=== PATIENT | female | born 1955 | race Caucasian/White ===

== ENCOUNTER 2020-10-25 07:17 | Emergency (ER) | payer OTHER, SELFPAY ==
[2020-10-25] MEDS ORDERED: Morphine 4 MG/ML VIAL ONE (08:02)
[2020-10-25] MEDS ORDERED: Lidocaine 1% w/Epinephrine 1:100K 20 ML VIAL ONE (08:02)
[2020-10-25] MEDS ORDERED: Ondansetron PF 4 MG/2 ML Vial ONE (08:02)
[2020-10-25 08:15] LABS: #Basophils 0.1 thou/uL (0.0-0.2); #Eosinphils 0.2 thou/uL (0.0-0.7); #Lymphocytes 2.6 thou/uL (1.20-3.40); #Monocytes 0.8 thou/uL (0.11-0.59); #Neutrophils 8.2 thou/uL (1.40-6.50); %Basophils 0.8 % (0.0-1.0); %Eosinophils 1.7 % (0.0-10.0); %Lymphocytes 21.7 % (21.0-51.0); %Monocytes 6.7 % (0.0-10.0); %Neutrophils 69.2 % (42.0-75.0); Hemoglobin 14.1 g/dL (12.0-16.0); Mean Corpuscular HGB CONC 34.6 g/dL (32.0-36.0); Mean Corpuscular Hemoglobin 32.9 pg (27.0-31.0); Mean Corpuscular Volume 94.9 fL (78.0-98.0); Mean Platelet Volume 8.1 fL (7.4-10.4); Platelet Count 464 thou/uL (130-400); RBC Distribution Width 10.9 % (11.5-14.5); White Blood Cell (WBC) Count 11.9 thou/uL (4.8-10.8)
[2020-10-25 08:38] LABS: ALT (SGPT) 28 U/L (8-55); AST (SGOT) 24 U/L (5-34); Albumin 4.3 g/dL (3.4-4.8); Alkaline Phosphatase 99 U/L (40-110); Anion Gap 15 mmol/L (10-20); BUN (Urea Nitrogen) 6 mg/dL (9.8-20.1); Bilirubin, Total 0.4 mg/dL (0.2-1.2); Calc. Creatinine Clearance 0 mL/min (70-130); Calcium 9.8 mg/dL (7.8-10.44); Carbon Dioxide 22 mmol/L (23-31); Chloride 100 mmol/L (98-107); Globulin 3.1 g/dL (2.4-3.5); Glucose 117 mg/dL (80-115); Potassium 3.6 mmol/L (3.5-5.1); Protein, Total 7.4 g/dL (5.8-8.1); Sodium 133 mmol/L (136-145)
== END 2020-10-25 09:12 | disposition home or self-care (01) ==
LOC: ERS 07:17
DX: K52.1 Toxic gastroenteritis and colitis (principal); T36.8X5A Adverse effect of other systemic antibiotics, initial encounter; L02.214 Cutaneous abscess of groin; F17.210 Nicotine dependence, cigarettes, uncomplicated; Z79.899 Other long term (current) drug therapy
CPT/HCPCS: 10060; 36415; 80053; 82274; 85025; 86850; 86900; 86901; 96374; 96375; J2270; J2405

== ENCOUNTER 2020-10-28 07:56 | Emergency (ER) | payer SELFPAY ==
[2020-10-28] MEDS ORDERED: Ondansetron PF 4 MG/2 ML Vial ONE (08:26)
[2020-10-28] MEDS ORDERED: Iopamidol-370 76% 500 ML 1 ML ONE (08:46)
[2020-10-28 08:51] LABS: #Basophils 0.1 thou/uL (0.0-0.2); #Eosinphils 0.1 thou/uL (0.0-0.7); #Lymphocytes 2.5 thou/uL (1.20-3.40); #Monocytes 0.5 thou/uL (0.11-0.59); #Neutrophils 9.2 thou/uL (1.40-6.50); %Basophils 0.8 % (0.0-1.0); %Eosinophils 0.9 % (0.0-10.0); %Lymphocytes 19.8 % (21.0-51.0); %Monocytes 4.2 % (0.0-10.0); %Neutrophils 74.3 % (42.0-75.0); Hemoglobin 13.6 g/dL (12.0-16.0); Mean Corpuscular HGB CONC 34.3 g/dL (32.0-36.0); Mean Corpuscular Hemoglobin 32.6 pg (27.0-31.0); Mean Corpuscular Volume 95.2 fL (78.0-98.0); Platelet Count 454 thou/uL (130-400); RBC Distribution Width 10.9 % (11.5-14.5); Red Blood Cell (RBC) Count 4.18 mill/uL (4.20-5.40); White Blood Cell (WBC) Count 12.4 thou/uL (4.8-10.8)
[2020-10-28 09:14] LABS: ALT (SGPT) 23 U/L (8-55); AST (SGOT) 18 U/L (5-34); Albumin 4.3 g/dL (3.4-4.8); Alkaline Phosphatase 102 U/L (40-110); Anion Gap 15 mmol/L (10-20); BUN (Urea Nitrogen) 5 mg/dL (9.8-20.1); Bilirubin, Total 0.3 mg/dL (0.2-1.2); CK (CPK) 41 U/L (29-168); Calc. Creatinine Clearance 0 mL/min (70-130); Calcium 9.6 mg/dL (7.8-10.44); Carbon Dioxide 24 mmol/L (23-31); Chloride 101 mmol/L (98-107); Globulin 3.1 g/dL (2.4-3.5); Glucose 115 mg/dL (80-115); Lipase Less than 4 U/L (8-78); Protein, Total 7.4 g/dL (5.8-8.1); Sodium 136 mmol/L (136-145)
== END 2020-10-28 10:06 | disposition home or self-care (01) ==
LOC: ERS 07:56
DX: R11.2 Nausea with vomiting, unspecified (principal); R10.13 Epigastric pain; F17.210 Nicotine dependence, cigarettes, uncomplicated
CPT/HCPCS: 71045; 74177; 80053; 82550; 83690; 84484; 85025; 93005; 96374; J2405; Q9967

== ENCOUNTER 2022-04-14 08:00 | Outpatient (CLI) | payer OTHER, MEDICAID ==
[2022-04-14] MEDS ORDERED: Iopamidol 370 76% 100 ML VIAL ONE (09:11)
== END 2022-04-14 08:01 | disposition home or self-care (01) ==
LOC: CT 08:00
PROVIDERS: ATTEND Internal Medicine
DX: K62.89 Other specified diseases of anus and rectum (principal); R59.0 Localized enlarged lymph nodes
CPT/HCPCS: 71260; 74177; 82565

== ENCOUNTER 2022-05-06 09:22 | Outpatient (CLI) | payer MEDICARE, MEDICAID ==
[2022-05-06] MEDS ORDERED: Magnevist 469MG/ML 20 ML VIAL ONE (13:49)
== END 2022-05-06 09:23 | disposition home or self-care (01) ==
LOC: TBSIIMAG 09:22
PROVIDERS: ATTEND Specialist
DX: C20 Malignant neoplasm of rectum (principal)
CPT/HCPCS: 72197; A9579

== ENCOUNTER → 2022-05-09 | Outpatient (CLI) | payer MEDICARE, MEDICAID | LOC: PET 11:00 | PROVIDERS: ATTEND Specialist | DX: C20 Malignant neoplasm of rectum (principal); R91.8 Other nonspecific abnormal finding of lung field | CPT/HCPCS: 78815; A9552 ==

== ENCOUNTER 2022-06-09 09:49 | Outpatient (CLI) | payer OTHER, MEDICAID ==
[~2022-06-09 09:49] MED LIST: Magnevist 469MG/ML 20 ML VIAL ONE
== END 2022-06-09 09:50 | disposition home or self-care (01) ==
LOC: MRI 09:49
PROVIDERS: ATTEND Radiology Radiation Oncology
DX: D48.2 Neoplasm of uncertain behavior of peripheral nerves and autonomic nervous system (principal); G95.89 Other specified diseases of spinal cord
CPT/HCPCS: 72157

== ENCOUNTER 2022-06-13 11:54 | Outpatient (CLI) | payer OTHER, MEDICAID ==
[2022-06-13 12:35] LABS: #Basophils 0.1 10x3/uL (0.0-0.2); #Eosinphils 0.2 10x3/uL (0.0-0.5); #Monocytes 0.5 10x3/uL (0.0-1.1); #Neutrophils 3.6 10x3/uL (1.5-8.4); %Basophils 0.9 % (0.0-2.0); %Eosinophils 2.8 % (0.0-6.0); %Lymphocytes 19.6 % (18.0-47.0); %Monocytes 9.2 % (0.0-10.0); %Neutrophils 67.1 % (40.0-75.0); Hemoglobin 12.7 g/dL (12.0-15.5); Mean Corpuscular Hemoglobin 31.4 pg (27.0-33.0); Mean Corpuscular Volume 92.1 fl (81.6-98.3); Mean Platelet Volume 10.5 fl (7.4-10.4); Platelet Count 291 10x3/uL (150-450); RBC Distribution Width 12.3 % (11.5-14.5); Red Blood Cell (RBC) Count 4.05 10x6/uL (3.90-5.03); White Blood Cell (WBC) Count 5.4 10x3/uL (3.5-10.5)
[2022-06-13 12:44] LABS: Anion Gap 14 mmol/L (10-20); BUN (Urea Nitrogen) 8 mg/dL (9.8-20.1); Calc. Creatinine Clearance 0 mL/min (70-130); Calcium 9.5 mg/dL (7.8-10.44); Carbon Dioxide 25 mmol/L (23-31); Chloride 101 mmol/L (98-107); Estimated GFR 96; Glucose 104 mg/dL (80-115); Potassium 3.8 mmol/L (3.5-5.1); Sodium 136 mmol/L (136-145)
== END 2022-06-13 11:55 | disposition home or self-care (01) ==
LOC: LABBT 11:54
PROVIDERS: ATTEND Specialist
DX: Z01.812 Encounter for preprocedural laboratory examination (principal); C20 Malignant neoplasm of rectum
CPT/HCPCS: 80048; 85025

== ENCOUNTER 2022-06-17 05:32 | Day surgery (SDC) | payer MEDICARE, MEDICAID ==
[2022-06-16 09:27] VITALS: BMI 26.4
[2022-06-17] MEDS ORDERED: Ketorolac Tromethamine 30 MG/ML VIAL ONE (06:25)
[2022-06-17] MEDS ORDERED: Acetaminophen 500 MG TAB ONE (06:25)
[2022-06-17] MEDS ORDERED: CEFAZOLIN 2 GM VIAL ONE (06:25)
[2022-06-17] MEDS ORDERED: Sodium Chloride 0.9% 100 ML ONE (06:26)
[2022-06-17] MEDS ORDERED: Lidocaine 1% MPF 2 ML VIAL ONE (06:37)
[2022-06-17] MEDS ORDERED: Bupivacaine/Epinephrine 0.25% 30 ML VIAL ONE (06:38)
[2022-06-17] MEDS ORDERED: Lidocaine 1% (PF) 30 ML VIAL ONE (06:38)
[2022-06-17] MEDS ORDERED: fentaNYL PF 100 MCG/2 ML SYRINGE ONE ×2 (06:48)
[2022-06-17] MEDS ORDERED: Lidocaine 2% PF 5 ML VIAL ONE (07:16)
[2022-06-17] MEDS ORDERED: Dexamethasone 20 MG/5 ML VIAL ONE (07:41)
[2022-06-17] MEDS ORDERED: Lidocaine 1% PF 5 ML VIAL ONE (07:41)
[2022-06-17] MEDS ORDERED: ePHEDrine 50 MG/ML VIAL ONE (07:41)
[2022-06-17] MEDS ORDERED: Ondansetron PF 4 MG/2 ML Vial ONE (07:41)
[2022-06-17] MEDS ORDERED: PROPOFOL 200 MG/20 ML VIAL ONE (07:41)
== END 2022-06-17 10:10 | disposition home or self-care (01) ==
LOC: SDC 05:32
PROVIDERS: ATTEND Specialist
PROC: 0JH60WZ Insertion of Totally Implantable Vascular Access Device into Chest Subcutaneous Tissue and Fascia, Open Approach (ICD-10-PCS; principal; 2022-06-17)
PROC: 02HV33Z Insertion of Infusion Device into Superior Vena Cava, Percutaneous Approach (ICD-10-PCS; 2022-06-17)
DX: C20 Malignant neoplasm of rectum (principal); K64.4 Residual hemorrhoidal skin tags; E78.00 Pure hypercholesterolemia, unspecified; Z87.891 Personal history of nicotine dependence; Z79.899 Other long term (current) drug therapy
CPT/HCPCS: 36561; 71045; C1788; J1100; J1642; J1885; J2001; J2405; J2704; J3490

== ENCOUNTER 2022-08-31 17:12 | Inpatient (IN) | payer OTHER, MEDICAID ==
[~2022-08-31 17:12] MED LIST changes: +Iopamidol 370 76% 100 ML VIAL ONE; -Magnevist 469MG/ML 20 ML VIAL ONE
[2022-08-31] MEDS ORDERED: Ondansetron PF 4 MG/2 ML Vial ONE ×2 (17:35→19:32)
[2022-08-31] MEDS ORDERED: Morphine 4 MG/ML VIAL ONE ×2 (17:45→19:28)
[2022-08-31 18:03] LABS: ALT (SGPT) 169 U/L (8-55); AST (SGOT) 179 U/L (5-34); Albumin 4.2 g/dL (3.4-4.8); Alkaline Phosphatase 545 U/L (40-110); Anion Gap 14 mmol/L (10-20); BUN (Urea Nitrogen) 8 mg/dL (9.8-20.1); Bilirubin, Total 1.7 mg/dL (0.2-1.2); Calc. Creatinine Clearance 0 mL/min (70-130); Calcium 9.5 mg/dL (7.8-10.44); Carbon Dioxide 23 mmol/L (23-31); Chloride 104 mmol/L (98-107); Estimated GFR 96; Globulin 2.6 g/dL (2.4-3.5); Glucose 155 mg/dL (80-115); Hemoglobin 11.2 g/dL (12.0-16.0); Mean Corpuscular HGB CONC 34.2 g/dL (32.0-36.0); Mean Corpuscular Hemoglobin 32.9 pg (27.0-31.0); Mean Corpuscular Volume 96.3 fl (78.0-98.0); Mean Platelet Volume 9.6 fL (7.4-10.4); Platelet Count 135 10x3/uL (130-400); Potassium 3.8 mmol/L (3.5-5.1); Protein, Total 6.8 g/dL (5.8-8.1); RBC Distribution Width 14.6 % (11.5-14.5); Red Blood Cell (RBC) Count 3.39 mill/uL (4.20-5.40); Sodium 137 mmol/L (136-145); White Blood Cell (WBC) Count 40.9 10x3/uL (4.8-10.8)
[2022-08-31 18:25] LABS: Band 2 % (5-11); Lymphocytes 4 % (21-51); MDiff Complete? YES; Neutrophil 94 % (42-75); Platelet Morphology Comment Appears Adequate; Polychromasia SLIGHT = 2-3 cells (100X) (0-2/hpf); Reflex for Review?? YES
[2022-08-31] MEDS ORDERED: Promethazine HCl 25 MG in Sodium Chloride 0.9% 50 ML IVPB SCH (20:00)
[2022-08-31] MEDS ORDERED: Senokot S 8.6-50 MG TAB PO PRN (20:07)
[2022-08-31] MEDS ORDERED: Acetaminophen 650 MG Suppository PR PRN (20:07)
[2022-08-31] MEDS ORDERED: Ondansetron ODT 4 MG TAB PO PRN (20:07)
[2022-08-31] MEDS ORDERED: Acetaminophen 325 MG TAB PO PRN (20:07)
[2022-08-31] MEDS ORDERED: Lactated Ringer's 1,000 ML IV SCH (20:15)
[2022-08-31 21:27] VITALS: BMI 24.1
[2022-08-31] MEDS ORDERED: fentaNYL 50 mcg/mL 1 mL Vial ONE (22:37)
[2022-09-01] MEDS: Famotidine 20 MG TAB PO SCH ×3 (00:17→21:31)
[2022-09-01] MEDS: Atorvastatin Calcium 20 MG TAB PO SCH ×2 (00:17→21:31)
[2022-09-01] MEDS ORDERED: Ketorolac Tromethamine 30 MG/ML VIAL IVP PRN (01:17)
[2022-09-01] MEDS: Ondansetron PF 4 MG/2 ML Vial IVP PRN ×2 (01:33→12:14)
[2022-09-01] MEDS: Hydrocortisone Acetate 25 MG Suppository PR SCH ×3 (01:44→21:32)
[2022-09-01 06:17] LABS: Hemoglobin 8.9 g/dL (12.0-16.0); Mean Corpuscular HGB CONC 33.2 g/dL (32.0-36.0); Mean Corpuscular Hemoglobin 32.3 pg (27.0-31.0); Mean Corpuscular Volume 97.4 fl (78.0-98.0); RBC Distribution Width 14.8 % (11.5-14.5); Red Blood Cell (RBC) Count 2.75 mill/uL (4.20-5.40); White Blood Cell (WBC) Count 27.3 10x3/uL (4.8-10.8)
[2022-09-01 06:34] LABS: ALT (SGPT) 149 U/L (8-55); AST (SGOT) 131 U/L (5-34); Albumin 3.1 g/dL (3.4-4.8); Alkaline Phosphatase 406 U/L (40-110); Anion Gap 11 mmol/L (10-20); BUN (Urea Nitrogen) 5 mg/dL (9.8-20.1); Calc. Creatinine Clearance 101 mL/min (70-130); Calcium 8.4 mg/dL (7.8-10.44); Carbon Dioxide 25 mmol/L (23-31); Chloride 104 mmol/L (98-107); Estimated GFR 102; Glucose 88 mg/dL (80-115); Potassium 3.8 mmol/L (3.5-5.1); Protein, Total 5.1 g/dL (5.8-8.1); Sodium 136 mmol/L (136-145)
[2022-09-01 06:38] LABS: Band 2 % (5-11); Lymphocytes 8 % (21-51); MDiff Complete? YES; Mean Platelet Volume 9.3 fL (7.4-10.4); Monocytes 4 % (0-10); Neutrophil 86 % (42-75); Platelet Count 112 10x3/uL (130-400); Platelet Morphology Comment Appears Decreased
[2022-09-01] MEDS: Ascorbic Acid 500 mg Chewable Tablet PO SCH (09:58)
[2022-09-01] MEDS: Loratadine 10 MG TAB PO SCH (09:58)
[2022-09-01] MEDS ORDERED: Piperacillin/Tazobactam 3.375 GM in Sodium Chloride 0.9% 100 ML IVPB SCH (12:00)
[2022-09-01] MEDS: Piperacillin/Tazobactam 3.375 GM in Sodium Chloride 0.9% 100 ML IVPB SCH (16:37)
[2022-09-01] MEDS: Lactated Ringer's 1,000 ML IV SCH (16:38)
[2022-09-02] MEDS: Piperacillin/Tazobactam 3.375 GM in Sodium Chloride 0.9% 100 ML IVPB SCH ×4 (00:24→23:50)
[2022-09-02] MEDS: Lactated Ringer's 1,000 ML IV SCH ×3 (04:58→18:55)
[2022-09-02 05:02] LABS: Hemoglobin 9.1 g/dL (12.0-16.0); Mean Corpuscular HGB CONC 32.8 g/dL (32.0-36.0); Mean Corpuscular Hemoglobin 32.1 pg (27.0-31.0); Mean Platelet Volume 9.5 fL (7.4-10.4); Platelet Count 130 10x3/uL (130-400); RBC Distribution Width 14.6 % (11.5-14.5); Red Blood Cell (RBC) Count 2.84 mill/uL (4.20-5.40); White Blood Cell (WBC) Count 8.3 10x3/uL (4.8-10.8)
[2022-09-02 05:19] LABS: Anion Gap 12 mmol/L (10-20); BUN (Urea Nitrogen) 6 mg/dL (9.8-20.1); Calc. Creatinine Clearance 82 mL/min (70-130); Carbon Dioxide 25 mmol/L (23-31); Chloride 106 mmol/L (98-107); Potassium 3.8 mmol/L (3.5-5.1); Sodium 139 mmol/L (136-145)
[2022-09-02 05:20] LABS: ALT (SGPT) 136 U/L (8-55); AST (SGOT) 88 U/L (5-34); Albumin 3.3 g/dL (3.4-4.8); Alkaline Phosphatase 431 U/L (40-110); Bilirubin, Total 1.8 mg/dL (0.2-1.2); Calcium 8.7 mg/dL (7.8-10.44); Estimated GFR 97; Globulin 2.2 g/dL (2.4-3.5); Glucose 92 mg/dL (80-115); Protein, Total 5.5 g/dL (5.8-8.1)
[2022-09-02 05:29] LABS: Anisocytosis SLIGHT = 6-15 cells (100X) (0-5/hpf); Band 3 % (5-11); Eosinophils 2 % (0-10); Lymphocytes 11 % (21-51); MDiff Complete? YES; Monocytes 6 % (0-10); Neutrophil 77 % (42-75); Platelet Morphology Comment Appears Adequate; Polychromasia SLIGHT = 2-3 cells (100X) (0-2/hpf); Stomatocytes SLIGHT = 2-5 cells (100X) (0-1/hpf)
[2022-09-02] MEDS: Famotidine 20 MG TAB PO SCH ×2 (08:22→21:23)
[2022-09-02] MEDS: Loratadine 10 MG TAB PO SCH (08:22)
[2022-09-02] MEDS: Ascorbic Acid 500 mg Chewable Tablet PO SCH (08:23)
[2022-09-02] MEDS: Hydrocortisone Acetate 25 MG Suppository PR SCH ×2 (08:23→21:25)
[2022-09-02] MEDS ORDERED: Iopamidol 30 ML ONE (08:35)
[2022-09-02] MEDS ORDERED: Indomethacin 50 MG SUPP ONE (08:36)
[2022-09-02] MEDS ORDERED: LORazepam 2 MG/ML SYR.(CARPUJECT) IVP PRN (08:41)
[2022-09-02] MEDS: Lorazepam 2 MG/ML VIAL SLOW IVP PRN (09:32)
[2022-09-02] MEDS ORDERED: fentaNYL 50 mcg/mL 1 mL Vial ONE (10:55)
[2022-09-02] MEDS ORDERED: SUGAMMADEX SODIUM 200 MG/2 ML VIAL ONE (10:58)
[2022-09-02] MEDS ORDERED: NEOSTIGMINE 3 MG/3 ML SYR 3 MG/3 ML SYRINGE ONE (11:08)
[2022-09-02] MEDS ORDERED: ePHEDrine Sulfate 50 MG/10 ML VIAL ONE (11:08)
[2022-09-02] MEDS ORDERED: Ondansetron PF 4 MG/2 ML Vial ONE (11:08)
[2022-09-02] MEDS ORDERED: GLYCOPYRROLATE/PF 0.2 MG/ML VIAL ONE (11:08)
[2022-09-02] MEDS ORDERED: PROPOFOL 200 MG/20 ML VIAL ONE (11:08)
[2022-09-02] MEDS ORDERED: Dexamethasone 20 MG/5 ML VIAL ONE (11:08)
[2022-09-02] MEDS ORDERED: Rocuronium Bromide 10 MG/ML (10ML VIAL) ONE (11:08)
[2022-09-03] MEDS: Lactated Ringer's 1,000 ML IV SCH ×2 (04:59→21:58)
[2022-09-03 05:25] LABS: Hemoglobin 8.1 g/dL (12.0-16.0); Mean Corpuscular Volume 96.9 fl (78.0-98.0); Mean Platelet Volume 9.2 fL (7.4-10.4); Platelet Count 149 10x3/uL (130-400); RBC Distribution Width 14.8 % (11.5-14.5); Red Blood Cell (RBC) Count 2.53 mill/uL (4.20-5.40); White Blood Cell (WBC) Count 10.5 10x3/uL (4.8-10.8)
[2022-09-03 05:43] LABS: ALT (SGPT) 96 U/L (8-55); AST (SGOT) 44 U/L (5-34); Albumin 3.2 g/dL (3.4-4.8); Alkaline Phosphatase 375 U/L (40-110); Anion Gap 12 mmol/L (10-20); BUN (Urea Nitrogen) 8 mg/dL (9.8-20.1); Calc. Creatinine Clearance 76 mL/min (70-130); Calcium 8.5 mg/dL (7.8-10.44); Carbon Dioxide 24 mmol/L (23-31); Chloride 103 mmol/L (98-107); Estimated GFR 96; Globulin 2.1 g/dL (2.4-3.5); Glucose 196 mg/dL (80-115); Potassium 3.7 mmol/L (3.5-5.1); Protein, Total 5.3 g/dL (5.8-8.1); Sodium 135 mmol/L (136-145)
[2022-09-03 05:58] LABS: Band 8 % (5-11); Eosinophils 1 % (0-10); Lymphocytes 15 % (21-51); MDiff Complete? YES; Monocytes 5 % (0-10); Myelocyte 1 % (0-0); Neutrophil 70 % (42-75)
[2022-09-03] MEDS: Lorazepam 2 MG/ML VIAL SLOW IVP PRN ×2 (09:47→22:03)
[2022-09-03] MEDS: Piperacillin/Tazobactam 3.375 GM in Sodium Chloride 0.9% 100 ML IVPB SCH ×2 (09:47→16:39)
[2022-09-03] MEDS: Loratadine 10 MG TAB PO SCH (09:48)
[2022-09-03] MEDS: Famotidine 20 MG TAB PO SCH (09:48)
[2022-09-03] MEDS: Ascorbic Acid 500 mg Chewable Tablet PO SCH (09:48)
[2022-09-03] MEDS: Hydrocortisone Acetate 25 MG Suppository PR SCH ×2 (10:35→21:54)
[2022-09-03] MEDS ORDERED: Lidocaine 1% PF 5 ML VIAL ONE (12:12)
[2022-09-03] MEDS ORDERED: PROPOFOL 200 MG/20 ML VIAL ONE (12:12)
[2022-09-03] MEDS ORDERED: Phenylephrine 10 MG/ML VIAL ONE (12:12)
[2022-09-03] MEDS ORDERED: Ondansetron PF 4 MG/2 ML Vial ONE (12:12)
[2022-09-03] MEDS ORDERED: Succinylcholine Chloride 100 MG/5 ML SYRINGE FS ONE (12:12)
[2022-09-03] MEDS ORDERED: Promethazine HCl 25 MG/ML VIAL IM PRN (12:33)
[2022-09-03] MEDS ORDERED: Meperidine HCl/PF 25 MG/ML VIAL SLOW IVP PRN (12:33)
[2022-09-03] MEDS ORDERED: Morphine Sulfate 2 MG/ML SYRINGE SLOW IVP PRN (12:33)
[2022-09-03] MEDS ORDERED: Ondansetron HCl/PF 4 MG/2 ML Vial IVP PRN (12:33)
[2022-09-03] MEDS: Pantoprazole 40 MG VIAL IVP SCH (21:55)
[2022-09-03 23:36] LABS: Hemoglobin 7.3 g/dL (12.0-16.0)
[2022-09-04] MEDS: Piperacillin/Tazobactam 3.375 GM in Sodium Chloride 0.9% 100 ML IVPB SCH ×4 (00:55→23:09)
[2022-09-04 05:11] LABS: Hemoglobin 6.9 g/dL (12.0-16.0); Mean Corpuscular HGB CONC 32.9 g/dL (32.0-36.0); Mean Corpuscular Hemoglobin 32.6 pg (27.0-31.0); Mean Corpuscular Volume 99.3 fl (78.0-98.0); Mean Platelet Volume 8.7 fL (7.4-10.4); Platelet Count 143 10x3/uL (130-400); RBC Distribution Width 16.1 % (11.5-14.5)
[2022-09-04 05:37] LABS: ALT (SGPT) 86 U/L (8-55); AST (SGOT) 62 U/L (5-34); Alkaline Phosphatase 318 U/L (40-110); Anion Gap 10 mmol/L (10-20); BUN (Urea Nitrogen) 6 mg/dL (9.8-20.1); Bilirubin, Total 1.2 mg/dL (0.2-1.2); Calc. Creatinine Clearance 75 mL/min (70-130); Calcium 8.3 mg/dL (7.8-10.44); Carbon Dioxide 27 mmol/L (23-31); Chloride 107 mmol/L (98-107); Estimated GFR 95; Globulin 1.8 g/dL (2.4-3.5); Glucose 82 mg/dL (80-115); Potassium 3.2 mmol/L (3.5-5.1); Protein, Total 4.8 g/dL (5.8-8.1); Sodium 141 mmol/L (136-145)
[2022-09-04 05:43] LABS: Anisocytosis SLIGHT = 6-15 cells (100X) (0-5/hpf); Band 5 % (5-11); Eosinophils 1 % (0-10); Lymphocytes 15 % (21-51); MDiff Complete? YES; Macrocytosis SLIGHT = 6-15 cells (100X) (0-5/hpf); Metamyelocyte 5 % (0-0); Monocytes 8 % (0-10); Neutrophil 66 % (42-75); Nucleated RBC 5 % (0); Platelet Morphology Comment Appears Adequate; Polychromasia MODERATE = 3-4 cells (100X) (0-2/hpf); White Blood Cell (WBC) Count 15.7 10x3/uL (4.8-10.8)
[2022-09-04] MEDS: Hydrocortisone Acetate 25 MG Suppository PR SCH ×2 (08:11→20:24)
[2022-09-04] MEDS: Loratadine 10 MG TAB PO SCH (08:26)
[2022-09-04] MEDS: Pantoprazole 40 MG VIAL IVP SCH ×2 (08:26→20:24)
[2022-09-04] MEDS: Ascorbic Acid 500 mg Chewable Tablet PO SCH (08:26)
[2022-09-04] MEDS: Lorazepam 2 MG/ML VIAL SLOW IVP PRN ×3 (08:48→21:03)
[2022-09-04] MEDS: Lactated Ringer's 1,000 ML IV SCH ×2 (12:55→21:02)
[2022-09-04 21:18] LABS: Platelet Count 133 10x3/uL (130-400)
[2022-09-04] MEDS ORDERED: Furosemide 20 MG/2 ML VIAL SLOW IVP SCH (22:30)
[2022-09-05 04:20] LABS: ALT (SGPT) 90 U/L (8-55); AST (SGOT) 62 U/L (5-34); Albumin 3.4 g/dL (3.4-4.8); Alkaline Phosphatase 364 U/L (40-110); Anion Gap 13 mmol/L (10-20); BUN (Urea Nitrogen) 6 mg/dL (9.8-20.1); Bilirubin, Total 1.5 mg/dL (0.2-1.2); Calc. Creatinine Clearance 73 mL/min (70-130); Calcium 8.7 mg/dL (7.8-10.44); Carbon Dioxide 28 mmol/L (23-31); Chloride 103 mmol/L (98-107); Estimated GFR 92; Globulin 2.3 g/dL (2.4-3.5); Glucose 116 mg/dL (80-115); Potassium 3.4 mmol/L (3.5-5.1); Protein, Total 5.7 g/dL (5.8-8.1); Sodium 141 mmol/L (136-145)
[2022-09-05 04:39] LABS: Band 14 % (5-11); Lymphocytes 18 % (21-51); MDiff Complete? YES; Mean Corpuscular HGB CONC 34.5 g/dL (32.0-36.0); Mean Corpuscular Hemoglobin 32.7 pg (27.0-31.0); Mean Corpuscular Volume 94.8 fl (78.0-98.0); Mean Platelet Volume 8.7 fL (7.4-10.4); Metamyelocyte 3 % (0-0); Monocytes 6 % (0-10); Myelocyte 4 % (0-0); Neutrophil 54 % (42-75); Nucleated RBC 2 % (0); Platelet Count 133 10x3/uL (130-400); Platelet Morphology Comment Appears Adequate; RBC Distribution Width 16.4 % (11.5-14.5); RBC Morphology Normal; Reactive Lymphocytes 1 % (0-10); Red Blood Cell (RBC) Count 3.68 mill/uL (4.20-5.40); White Blood Cell (WBC) Count 34.6 10x3/uL (4.8-10.8)
[2022-09-05] MEDS ORDERED: Potassium Chloride 20 MEQ TAB PO SCH (08:00)
[2022-09-05 08:31] VITALS: BP 131/76; TEMP 98.4
[2022-09-05] MEDS: Piperacillin/Tazobactam 3.375 GM in Sodium Chloride 0.9% 100 ML IVPB SCH (09:33)
[2022-09-05] MEDS: Loratadine 10 MG TAB PO SCH (09:33)
[2022-09-05] MEDS: Ascorbic Acid 500 mg Chewable Tablet PO SCH (09:33)
[2022-09-05] MEDS: Pantoprazole 40 MG VIAL IVP SCH (09:34)
[2022-09-05] MEDS: Hydrocortisone Acetate 25 MG Suppository PR SCH (09:47)
== END 2022-09-05 15:25 | disposition home or self-care (01) | DRG 444 ==
LOC: ERS 17:12 → ERHOLD 20:05 → CCU 22:49 → MSONC 09-01 01:07
PROVIDERS: ADMIT Student in an Organized Health Care Education/Training Program; ATTEND Internal Medicine
PROC: 0F798ZZ Dilation of Common Bile Duct, Via Natural or Artificial Opening Endoscopic (ICD-10-PCS; principal; 2022-09-02)
PROC: 0F778ZZ Dilation of Common Hepatic Duct, Via Natural or Artificial Opening Endoscopic (ICD-10-PCS; 2022-09-02)
PROC: 0W3P8ZZ Control Bleeding in Gastrointestinal Tract, Via Natural or Artificial Opening Endoscopic (ICD-10-PCS; 2022-09-03)
PROC: 30233N1 Transfusion of Nonautologous Red Blood Cells into Peripheral Vein, Percutaneous Approach (ICD-10-PCS; 2022-09-04)
DX: K82.8 Other specified diseases of gallbladder (principal); J96.01 Acute respiratory failure with hypoxia; C19 Malignant neoplasm of rectosigmoid junction; C64.9 Malignant neoplasm of unspecified kidney, except renal pelvis; K91.840 Postprocedural hemorrhage of a digestive system organ or structure following a digestive system procedure; D62 Acute posthemorrhagic anemia; R11.2 Nausea with vomiting, unspecified; D72.829 Elevated white blood cell count, unspecified; Y83.8 Other surgical procedures as the cause of abnormal reaction of the patient, or of later complication, without mention of misadventure at the time of the procedure; E78.5 Hyperlipidemia, unspecified; K21.9 Gastro-esophageal reflux disease without esophagitis; Z79.899 Other long term (current) drug therapy; Z98.51 Tubal ligation status; Z90.49 Acquired absence of other specified parts of digestive tract; Z87.891 Personal history of nicotine dependence
CPT/HCPCS: 36415; 36430; 71045; 74177; 74181; 74330; 80053; 83605; 83690; 83880; 84484; 85025; 85060; 86850; 86900; 86901; 87040; 93005; 96361; 96365; 96375; 96376; C1725; C9113; J1100; J1642; J1885; J1940; J2060; J2270; J2370; J2405; J2543; J2550; J2704; J3010; J3490; J7120; P9016; Q9967

== ENCOUNTER 2023-01-28 10:38 | Outpatient (CLI) | payer OTHER, MEDICAID ==
[2023-01-28 12:36] LABS: #Eosinphils 0.1 10x3/uL (0.0-0.5); #Monocytes 0.5 10x3/uL (0.0-1.1); #Neutrophils 4.8 10x3/uL (1.5-8.4); %Basophils 0.6 % (0.0-2.0); %Eosinophils 1.1 % (0.0-6.0); %Lymphocytes 23.9 % (18.0-47.0); %Monocytes 6.7 % (0.0-10.0); %Neutrophils 67.4 % (40.0-75.0); Hematocrit 36.6 % (34.9-44.5); Hemoglobin 12.1 g/dL (12.0-15.5); Mean Corpuscular HGB CONC 33.1 g/dL (32.0-36.0); Mean Corpuscular Hemoglobin 31.9 pg (27.0-33.0); Mean Corpuscular Volume 96.6 fl (81.6-98.3); Mean Platelet Volume 10.6 fl (7.4-10.4); Platelet Count 349 10x3/uL (150-450); Red Blood Cell (RBC) Count 3.79 10x6/uL (3.90-5.03); White Blood Cell (WBC) Count 7.1 10x3/uL (3.5-10.5)
[2023-01-28 13:15] LABS: Anion Gap 15 mmol/L (10-20); BUN (Urea Nitrogen) 6 mg/dL (9.8-20.1); Calc. Creatinine Clearance 0 mL/min (70-130); Calcium 9.3 mg/dL (7.8-10.44); Carbon Dioxide 22 mmol/L (23-31); Chloride 104 mmol/L (98-107); Estimated GFR 97; Glucose 90 mg/dL (80-115); Potassium 3.9 mmol/L (3.5-5.1); Sodium 137 mmol/L (136-145)
[2023-01-28 16:44] LABS: Hemoglobin A1c 5.4 % (4.0-6.0)
== END 2023-01-28 10:39 | disposition home or self-care (01) ==
LOC: LABBT 10:38
PROVIDERS: ATTEND Specialist
DX: Z01.818 Encounter for other preprocedural examination (principal); C20 Malignant neoplasm of rectum
CPT/HCPCS: 71046; 80048; 83036; 85025; 93005; 93010

== ENCOUNTER 2023-01-28 11:00 | Inpatient (IN) | payer OTHER, MEDICAID ==
[2023-01-28 11:30] VITALS: BMI 23.2
[2023-02-03] MEDS ORDERED: Bupivacaine PF 0.5% 30 ML VIAL ONE (07:28)
[2023-02-03] MEDS ORDERED: Midazolam HCl 2 mg/2 ml Vial ONE (07:28)
[2023-02-03] MEDS ORDERED: fentaNYL 50 mcg/mL 1 mL Vial ONE ×2 (07:28→16:07)
[2023-02-03] MEDS ORDERED: Lidocaine 1% (PF) 30 ML VIAL ONE ×2 (08:13→08:43)
[2023-02-03] MEDS ORDERED: SUGAMMADEX SODIUM 200 MG/2 ML VIAL ONE (08:38)
[2023-02-03] MEDS ORDERED: fentaNYL PF 100 MCG/2 ML SYRINGE ONE (08:38)
[2023-02-03] MEDS ORDERED: Famotidine/PF 20 mg/2ml Vial ONE (08:38)
[2023-02-03] MEDS ORDERED: Lidocaine 1% PF 5 ML VIAL ONE ×2 (08:41→09:15)
[2023-02-03] MEDS ORDERED: EPINEPHrine 1 MG/ML AMP ONE (08:41)
[2023-02-03] MEDS ORDERED: Sevoflurane 250 ML INH ANEST BOTTLE ONE (08:48)
[2023-02-03] MEDS ORDERED: Ketorolac Tromethamine 30 MG/ML VIAL ONE (09:03)
[2023-02-03] MEDS ORDERED: Sodium Chloride 0.9% 100 ML ONE (09:04)
[2023-02-03] MEDS ORDERED: cefOXitin 2 GM VIAL ONE ×2 (09:04→10:11)
[2023-02-03] MEDS ORDERED: Esmolol 100 MG/10 ML VIAL ONE (09:15)
[2023-02-03] MEDS ORDERED: PROPOFOL 200 MG/20 ML VIAL ONE (09:15)
[2023-02-03] MEDS ORDERED: NEOSTIGMINE 3 MG/3 ML SYR 3 MG/3 ML SYRINGE ONE (09:15)
[2023-02-03] MEDS ORDERED: ePHEDrine Sulfate 50 MG/10 ML VIAL ONE (09:15)
[2023-02-03] MEDS ORDERED: Dexamethasone 20 MG/5 ML VIAL ONE (09:15)
[2023-02-03] MEDS ORDERED: Rocuronium Bromide 10 MG/ML (10ML VIAL) ONE (09:15)
[2023-02-03] MEDS ORDERED: Glycopyrrolate 0.2 MG/ML 5 ML SYRINGE ONE (09:15)
[2023-02-03] MEDS ORDERED: Ondansetron PF 4 MG/2 ML Vial ONE (09:15)
[2023-02-03] MEDS ORDERED: Meperidine HCl/PF 25 MG/ML VIAL SLOW IVP PRN (11:05)
[2023-02-03] MEDS ORDERED: Ondansetron HCl/PF 4 MG/2 ML Vial IVP PRN (11:05)
[2023-02-03] MEDS ORDERED: Promethazine HCl 25 MG/ML VIAL IM PRN ×2 (11:05→17:06)
[2023-02-03] MEDS ORDERED: HYDROmorphone 2 MG/ML VIAL SLOW IVP PRN (11:05)
[2023-02-03] MEDS ORDERED: hydrALAZINE 20 MG/ML VIAL SLOW IVP PRN (17:06)
[2023-02-03] MEDS ORDERED: Ipratropium/Albuterol 3 ML NEB NEB PRN (17:06)
[2023-02-03] MEDS ORDERED: Morphine 4 MG/ML VIAL SLOW IVP PRN (17:06)
[2023-02-03] MEDS ORDERED: Ondansetron PF 4 MG/2 ML Vial IVP PRN (17:06)
[2023-02-03] MEDS ORDERED: Morphine 2 MG/ML VIAL SLOW IVP PRN (17:06)
[2023-02-03] MEDS: Ketorolac Tromethamine 30 MG/ML VIAL IVP SCH (18:55)
[2023-02-03] MEDS: D5 1/2 NS w/20 mEq KCL 1,000 ML IV SCH (21:07)
[2023-02-03] MEDS: Famotidine 20 MG TAB PO SCH (21:09)
[2023-02-03] MEDS: PREDNISOLONE 1% L EYE SCH (21:10)
[2023-02-03] MEDS: OPTHALMIC L EYE SCH (21:10)
[2023-02-03] MEDS: Atorvastatin Calcium 20 MG TAB PO SCH (21:21)
[2023-02-03] MEDS: Famotidine/PF 20 mg/2ml Vial SLOW IVP SCH (21:44)
[2023-02-04] MEDS: Ketorolac Tromethamine 30 MG/ML VIAL IVP SCH ×4 (00:51→17:09)
[2023-02-04] MEDS: D5 1/2 NS w/20 mEq KCL 1,000 ML IV SCH (05:41)
[2023-02-04 05:58] LABS: #Neutrophils 9.2 thou/uL (1.40-6.50); %Basophils 0.1 % (0.0-1.0); %Lymphocytes 8.2 % (21.0-51.0); %Neutrophils 82.1 % (42.0-75.0); Hematocrit 30.4 % (36.0-47.0); Hemoglobin 10.2 g/dL (12.0-16.0); Mean Corpuscular HGB CONC 33.6 g/dL (32.0-36.0); Mean Corpuscular Hemoglobin 32.4 pg (27.0-31.0); Mean Corpuscular Volume 96.5 fl (78.0-98.0); Mean Platelet Volume 9.8 fL (7.4-10.4); Platelet Count 237 10x3/uL (130-400); RBC Distribution Width 13.3 % (11.5-14.5); Red Blood Cell (RBC) Count 3.15 mill/uL (4.20-5.40); White Blood Cell (WBC) Count 11.2 10x3/uL (4.8-10.8)
[2023-02-04 06:18] LABS: Anion Gap 11 mmol/L (10-20); BUN (Urea Nitrogen) 11 mg/dL (9.8-20.1); Calc. Creatinine Clearance 73 mL/min (70-130); Calcium 8.8 mg/dL (7.8-10.44); Carbon Dioxide 21 mmol/L (23-31); Chloride 103 mmol/L (98-107); Estimated GFR 96; Glucose 144 mg/dL (80-115); Potassium 4.7 mmol/L (3.5-5.1); Sodium 130 mmol/L (136-145)
[2023-02-04] MEDS: Famotidine 20 MG TAB PO SCH ×2 (09:07→21:13)
[2023-02-04] MEDS: Loratadine 10 MG TAB PO SCH (09:07)
[2023-02-04] MEDS: Famotidine/PF 20 mg/2ml Vial SLOW IVP SCH ×2 (09:07→21:13)
[2023-02-04] MEDS: PREDNISOLONE 1% L EYE SCH ×2 (09:08→21:13)
[2023-02-04] MEDS: OPTHALMIC L EYE SCH ×2 (09:08→21:13)
[2023-02-04] MEDS ORDERED: HYDROcodone/Acetaminophen 7.5/325 mg Tablet PO PRN (09:09)
[2023-02-04] MEDS: D5 0.9% NS w/ 20 mEq KCl 1,000 ML IV SCH ×2 (09:11→18:52)
[2023-02-04] MEDS: Lorazepam 1 MG TAB PO PRN (21:12)
[2023-02-04] MEDS: Atorvastatin Calcium 20 MG TAB PO SCH (21:12)
[2023-02-04] MEDS: HYDROcodone/Acetaminophen 7.5/325 mg Tablet PO PRN (21:12)
[2023-02-05] MEDS: D5 0.9% NS w/ 20 mEq KCl 1,000 ML IV SCH (05:09)
[2023-02-05] MEDS: Ketorolac Tromethamine 30 MG/ML VIAL IVP SCH ×3 (05:09→11:52)
[2023-02-05] MEDS: Famotidine 20 MG TAB PO SCH ×2 (09:30→21:12)
[2023-02-05] MEDS: Loratadine 10 MG TAB PO SCH (09:30)
[2023-02-05] MEDS: Famotidine/PF 20 mg/2ml Vial SLOW IVP SCH ×2 (09:31→21:14)
[2023-02-05] MEDS: OPTHALMIC L EYE SCH ×2 (09:33→21:14)
[2023-02-05] MEDS: PREDNISOLONE 1% L EYE SCH ×2 (09:33→21:14)
[2023-02-05] MEDS ORDERED: D5 0.9% NS w/ 20 mEq KCl 1,000 ML IV SCH (12:19)
[2023-02-05] MEDS: Lorazepam 1 MG TAB PO PRN (16:29)
[2023-02-05] MEDS: HYDROcodone/Acetaminophen 7.5/325 mg Tablet PO PRN (16:29)
[2023-02-05] MEDS: Atorvastatin Calcium 20 MG TAB PO SCH (21:12)
[2023-02-06 05:56] LABS: #Eosinphils 0.2 thou/uL (0.0-0.7); #Monocytes 0.6 thou/uL (0.11-0.59); #Neutrophils 6.1 thou/uL (1.40-6.50); %Basophils 0.2 % (0.0-1.0); %Lymphocytes 18.4 % (21.0-51.0); %Neutrophils 72.2 % (42.0-75.0); Hematocrit 30.5 % (36.0-47.0); Hemoglobin 10.2 g/dL (12.0-16.0); Mean Corpuscular HGB CONC 33.4 g/dL (32.0-36.0); Mean Corpuscular Hemoglobin 32.2 pg (27.0-31.0); Mean Corpuscular Volume 96.2 fl (78.0-98.0); Mean Platelet Volume 10.2 fL (7.4-10.4); Platelet Count 223 10x3/uL (130-400); RBC Distribution Width 13.1 % (11.5-14.5); Red Blood Cell (RBC) Count 3.17 mill/uL (4.20-5.40); White Blood Cell (WBC) Count 8.5 10x3/uL (4.8-10.8)
[2023-02-06 06:32] LABS: Anion Gap 12 mmol/L (10-20); BUN (Urea Nitrogen) 5 mg/dL (9.8-20.1); Calc. Creatinine Clearance 88 mL/min (70-130); Calcium 9.4 mg/dL (7.8-10.44); Carbon Dioxide 25 mmol/L (23-31); Chloride 101 mmol/L (98-107); Estimated GFR 97; Glucose 105 mg/dL (80-115); Potassium 4.2 mmol/L (3.5-5.1); Sodium 134 mmol/L (136-145)
[2023-02-06] MEDS ORDERED: Loperamide HCl 2 MG CAP PO SCH (09:00)
[2023-02-06] MEDS: OPTHALMIC L EYE SCH (09:51)
[2023-02-06] MEDS: Loratadine 10 MG TAB PO SCH (09:51)
[2023-02-06] MEDS: Famotidine/PF 20 mg/2ml Vial SLOW IVP SCH (09:51)
[2023-02-06] MEDS: Lorazepam 1 MG TAB PO PRN (09:51)
[2023-02-06] MEDS: PREDNISOLONE 1% L EYE SCH (09:51)
[2023-02-06] MEDS: Famotidine 20 MG TAB PO SCH (09:51)
[2023-02-06 12:38] VITALS: BP 101/65; TEMP 98.4
== END 2023-02-06 13:51 | disposition home or self-care (01) | DRG 331 ==
LOC: SURG A 02-03 06:53 → SURG B 02-03 18:11
PROVIDERS: ADMIT Specialist; ATTEND Specialist
PROC: 0DBP4ZZ Excision of Rectum, Percutaneous Endoscopic Approach (ICD-10-PCS; principal; 2023-02-03)
PROC: 0D1B4Z4 Bypass Ileum to Cutaneous, Percutaneous Endoscopic Approach (ICD-10-PCS; 2023-02-03)
DX: C20 Malignant neoplasm of rectum (principal); E78.00 Pure hypercholesterolemia, unspecified; F41.9 Anxiety disorder, unspecified; Z79.899 Other long term (current) drug therapy; Z90.49 Acquired absence of other specified parts of digestive tract; Z87.891 Personal history of nicotine dependence; Z82.49 Family history of ischemic heart disease and other diseases of the circulatory system
CPT/HCPCS: 36415; 80048; 85025; 88309; 94640; 97139; A4314; A4649; J0171; J0694; J1100; J1650; J1885; J2001; J2250; J2272; J2405; J2704; J3010; J3480; J3490; J7620; S0020; S0028

== ENCOUNTER 2023-03-19 09:09 | Outpatient (CLI) | payer OTHER, MEDICAID | END 2023-03-19 09:10 | disposition home or self-care (01) | LOC: RAD 09:09 | PROVIDERS: ATTEND Specialist | DX: C20 Malignant neoplasm of rectum (principal); K91.89 Other postprocedural complications and disorders of digestive system | CPT/HCPCS: 74280 ==

== ENCOUNTER 2023-04-01 12:06 | Outpatient (CLI) | payer OTHER, MEDICAID ==
[2023-04-01 13:41] LABS: #Eosinphils 0.1 10x3/uL (0.0-0.5); #Monocytes 0.5 10x3/uL (0.0-1.1); %Basophils 0.6 % (0.0-2.0); %Eosinophils 1.7 % (0.0-6.0); %Lymphocytes 28.8 % (18.0-47.0); %Monocytes 7.6 % (0.0-10.0); %Neutrophils 61.1 % (40.0-75.0); Hematocrit 37.4 % (34.9-44.5); Hemoglobin 12.4 g/dL (12.0-15.5); Mean Corpuscular HGB CONC 33.2 g/dL (32.0-36.0); Mean Corpuscular Hemoglobin 31.4 pg (27.0-33.0); Mean Corpuscular Volume 94.7 fl (81.6-98.3); Mean Platelet Volume 10.1 fl (7.4-10.4); Platelet Count 307 10x3/uL (150-450); Red Blood Cell (RBC) Count 3.95 10x6/uL (3.90-5.03); White Blood Cell (WBC) Count 6.6 10x3/uL (3.5-10.5)
[2023-04-01 13:59] LABS: Anion Gap 13 mmol/L (10-20); BUN (Urea Nitrogen) 6 mg/dL (9.8-20.1); Calc. Creatinine Clearance 0 mL/min (70-130); Calcium 9.4 mg/dL (7.8-10.44); Carbon Dioxide 24 mmol/L (23-31); Chloride 103 mmol/L (98-107); Estimated GFR 95; Glucose 156 mg/dL (80-115); Potassium 4.2 mmol/L (3.5-5.1); Sodium 136 mmol/L (136-145)
[2023-04-01 17:14] LABS: Hemoglobin A1c 6.1 % (4.0-6.0)
== END 2023-04-01 12:07 | disposition home or self-care (01) ==
LOC: LABBT 12:06
PROVIDERS: ATTEND Specialist
DX: Z01.818 Encounter for other preprocedural examination (principal); Z93.2 Ileostomy status
CPT/HCPCS: 71046; 80048; 83036; 85025; 93005; 93010

== ENCOUNTER 2023-04-01 12:30 | Inpatient (IN) | payer OTHER, MEDICAID ==
[2023-04-01 13:07] VITALS: BMI 21.7
[2023-04-06] MEDS ORDERED: Ketorolac Tromethamine 30 MG/ML VIAL ONE (10:52)
[2023-04-06] MEDS ORDERED: Acetaminophen 500 MG TAB ONE (10:52)
[2023-04-06] MEDS ORDERED: Midazolam HCl 2 mg/2 ml Vial ONE (10:58)
[2023-04-06] MEDS ORDERED: fentaNYL PF 100 MCG/2 ML SYRINGE ONE (10:58)
[2023-04-06] MEDS ORDERED: Bupivacaine 0.25% HCL 30 ML VIAL ONE (11:50)
[2023-04-06] MEDS ORDERED: EPINEPHrine 1 MG/ML VIAL ONE (11:50)
[2023-04-06] MEDS ORDERED: fentaNYL 50 mcg/mL 1 mL Vial ONE (12:25)
[2023-04-06] MEDS ORDERED: SUGAMMADEX SODIUM 200 MG/2 ML VIAL ONE (12:25)
[2023-04-06] MEDS ORDERED: Sodium Chloride 0.9% 100 ML ONE (12:35)
[2023-04-06] MEDS ORDERED: CEFAZOLIN 2 GM VIAL ONE (12:35)
[2023-04-06] MEDS ORDERED: Dexamethasone 20 MG/5 ML VIAL ONE (13:22)
[2023-04-06] MEDS ORDERED: PROPOFOL 200 MG/20 ML VIAL ONE (13:22)
[2023-04-06] MEDS ORDERED: Rocuronium Bromide 10 MG/ML (10ML VIAL) ONE (13:22)
[2023-04-06] MEDS ORDERED: Ondansetron PF 4 MG/2 ML Vial ONE (13:22)
[2023-04-06] MEDS ORDERED: Lidocaine 1% PF 5 ML VIAL ONE (13:22)
[2023-04-06] MEDS ORDERED: PHENYLEPHRINE-NS 100 MCG/ML 10 ML SYRINGE ONE (13:22)
[2023-04-06] MEDS ORDERED: Promethazine HCl 25 MG/ML VIAL IM PRN ×2 (13:58→14:39)
[2023-04-06] MEDS ORDERED: Ondansetron HCl/PF 4 MG/2 ML Vial IVP PRN (13:58)
[2023-04-06] MEDS ORDERED: Ondansetron PF 4 MG/2 ML Vial IVP PRN (14:39)
[2023-04-06] MEDS ORDERED: Morphine 4 MG/ML VIAL SLOW IVP PRN (14:39)
[2023-04-06] MEDS ORDERED: Morphine 2 MG/ML VIAL SLOW IVP PRN (14:39)
[2023-04-06] MEDS ORDERED: Ipratropium/Albuterol 3 ML NEB NEB PRN (14:39)
[2023-04-06] MEDS ORDERED: hydrALAZINE 20 MG/ML VIAL SLOW IVP PRN (14:39)
[2023-04-06] MEDS: Ketorolac Tromethamine 30 MG/ML VIAL IVP SCH ×2 (17:14→23:52)
[2023-04-06] MEDS: Sodium Chloride 0.9% 1,000 ML IV SCH (17:22)
[2023-04-06] MEDS: cefOXitin Sodium 1 GM in Sodium Chloride 0.9% 100 ML IVPB SCH (21:00)
[2023-04-06] MEDS: Famotidine/PF 20 mg/2ml Vial SLOW IVP SCH (21:07)
[2023-04-06] MEDS: Famotidine 20 MG TAB PO SCH (23:43)
[2023-04-07] MEDS: Sodium Chloride 0.9% 1,000 ML IV SCH ×3 (02:50→21:42)
[2023-04-07 04:59] LABS: #Monocytes 0.3 thou/uL (0.11-0.59); #Neutrophils 7.4 thou/uL (1.40-6.50); %Basophils 0.1 % (0.0-1.0); %Lymphocytes 11.5 % (21.0-51.0); %Neutrophils 84.8 % (42.0-75.0); Hematocrit 29.7 % (36.0-47.0); Hemoglobin 9.9 g/dL (12.0-16.0); Mean Corpuscular HGB CONC 33.3 g/dL (32.0-36.0); Mean Corpuscular Volume 96.1 fl (78.0-98.0); Mean Platelet Volume 10.5 fL (7.4-10.4); Platelet Count 255 10x3/uL (130-400); RBC Distribution Width 12.7 % (11.5-14.5); Red Blood Cell (RBC) Count 3.09 mill/uL (4.20-5.40); White Blood Cell (WBC) Count 8.8 10x3/uL (4.8-10.8)
[2023-04-07] MEDS: cefOXitin Sodium 1 GM in Sodium Chloride 0.9% 100 ML IVPB SCH (05:00)
[2023-04-07] MEDS: Ketorolac Tromethamine 30 MG/ML VIAL IVP SCH ×4 (05:12→23:41)
[2023-04-07 05:24] LABS: Anion Gap 17 mmol/L (10-20); BUN (Urea Nitrogen) 18 mg/dL (9.8-20.1); Calc. Creatinine Clearance 67 mL/min (70-130); Calcium 8.4 mg/dL (7.8-10.44); Carbon Dioxide 16 mmol/L (23-31); Chloride 107 mmol/L (98-107); Estimated GFR 96; Glucose 84 mg/dL (80-115); Potassium 4.1 mmol/L (3.5-5.1); Sodium 136 mmol/L (136-145)
[2023-04-07] MEDS: Loratadine 10 MG TAB PO SCH (09:18)
[2023-04-07] MEDS: Atorvastatin Calcium 20 MG TAB PO SCH (09:18)
[2023-04-07] MEDS: Famotidine 20 MG TAB PO SCH ×2 (09:18→21:41)
[2023-04-07] MEDS: Famotidine/PF 20 mg/2ml Vial SLOW IVP SCH ×2 (09:20→21:42)
[2023-04-07] MEDS ORDERED: HYDROcodone/Acetaminophen 7.5/325 mg Tablet PO PRN ×2 (09:21→14:41)
[2023-04-08] MEDS: Ketorolac Tromethamine 30 MG/ML VIAL IVP SCH ×2 (05:37→12:18)
[2023-04-08] MEDS: Sodium Chloride 0.9% 1,000 ML IV SCH (05:58)
[2023-04-08] MEDS: Atorvastatin Calcium 20 MG TAB PO SCH (08:49)
[2023-04-08] MEDS: Famotidine 20 MG TAB PO SCH (08:49)
[2023-04-08] MEDS: Loratadine 10 MG TAB PO SCH (08:49)
[2023-04-08] MEDS: Famotidine/PF 20 mg/2ml Vial SLOW IVP SCH (08:55)
[2023-04-08 11:49] VITALS: BP 121/69; TEMP 97.6
== END 2023-04-08 14:11 | disposition home or self-care (01) | DRG 331 ==
LOC: SURG A 04-06 10:12
PROVIDERS: ADMIT Specialist; ATTEND Specialist
PROC: 0DSB0ZZ Reposition Ileum, Open Approach (ICD-10-PCS; principal; 2023-04-07)
PROC: 3E033XZ Introduction of Vasopressor into Peripheral Vein, Percutaneous Approach (ICD-10-PCS; 2023-04-07)
DX: C20 Malignant neoplasm of rectum (principal); E78.00 Pure hypercholesterolemia, unspecified; K80.20 Calculus of gallbladder without cholecystitis without obstruction; Z93.2 Ileostomy status; Z98.890 Other specified postprocedural states; Z79.899 Other long term (current) drug therapy; Z80.1 Family history of malignant neoplasm of trachea, bronchus and lung; Z82.49 Family history of ischemic heart disease and other diseases of the circulatory system
CPT/HCPCS: 36415; 80048; 85025; 88304; A4314; A4649; J0171; J0694; J1100; J1885; J2250; J2405; J2704; J3010; J3490; J7050; S0020; S0028

== ENCOUNTER 2023-06-05 08:11 | Outpatient (CLI) | payer OTHER, MEDICAID ==
[2023-06-05] MEDS ORDERED: Iopamidol 370 76% 100 ML VIAL ONE (12:22)
== END 2023-06-05 08:12 | disposition home or self-care (01) ==
LOC: BICCT 08:11
PROVIDERS: ATTEND Internal Medicine Hematology & Oncology
DX: C20 Malignant neoplasm of rectum (principal); R91.1 Solitary pulmonary nodule; M48.9 Spondylopathy, unspecified; Z98.890 Other specified postprocedural states
CPT/HCPCS: 71260; 74177; 82565

== ENCOUNTER 2023-07-31 13:34 | Outpatient (CLI) | payer OTHER, MEDICAID | END 2023-07-31 13:35 | disposition home or self-care (01) | LOC: BICMAMMO 13:34 | PROVIDERS: ATTEND Family Medicine | DX: N63.15 Unspecified lump in the right breast, overlapping quadrants (principal); N63.21 Unspecified lump in the left breast, upper outer quadrant | CPT/HCPCS: 76642; 77066; G0279 ==

== ENCOUNTER 2024-01-18 13:13 | Outpatient (CLI) | payer OTHER, MEDICAID | END 2024-01-18 13:14 | disposition home or self-care (01) | LOC: BICCT 13:13 | PROVIDERS: ATTEND Internal Medicine Hematology & Oncology | DX: C20 Malignant neoplasm of rectum (principal); R91.1 Solitary pulmonary nodule; Z98.890 Other specified postprocedural states | CPT/HCPCS: 71260; 74177; Q9967 ==

== ENCOUNTER 2024-05-09 08:26 | Outpatient (CLI) | payer OTHER, MEDICAID | END 2024-05-09 08:27 | disposition home or self-care (01) | LOC: BICMAMMO 08:26 | PROVIDERS: ATTEND Family Medicine | DX: Z13.820 Encounter for screening for osteoporosis (principal); M81.0 Age-related osteoporosis without current pathological fracture; M85.851 Other specified disorders of bone density and structure, right thigh; M85.852 Other specified disorders of bone density and structure, left thigh | CPT/HCPCS: 77080 ==

== ENCOUNTER 2024-06-20 08:13 | Outpatient (CLI) | payer OTHER, MEDICAID ==
[2024-06-20] MEDS ORDERED: Iopamidol 370 76% 100 ML VIAL ONE (09:08)
== END 2024-06-20 08:14 | disposition home or self-care (01) ==
LOC: CT 08:13
PROVIDERS: ATTEND Internal Medicine Hematology & Oncology
DX: C20 Malignant neoplasm of rectum (principal)
CPT/HCPCS: 36415; 71260; 74177; 82565